=== PATIENT | female | born 1940 | race Caucasian/White ===

== ENCOUNTER 2016-11-17 13:38 | Inpatient (IN) | payer MEDICARE, BC ==
--- NOTE | ~2016-11-17 | HP ---
History And Physical [place] [id number] [facility] [place]. [address] NAME: ROSETTA CASH : 39 STATUS : ADM Rashida PAT#: [id number] AGE: 76 ADM/REG DATE : 11/17/16 MR#: [id number] REPORT SERV DATE: 11/18/16 DICTATED BY: CHUY MILLER DATE: 11/17/16 REPORT STATUS : Draft TRANSCRIBED BY: MODL DATE: 11/17/16 DATE OF ADMISSION: 11/17/2016 CHIEF COMPLAINT: Abdominal pain and diarrhea. HISTORY OF PRESENT ILLNESS: This is a 76-year-old female, who presents to the emergency room at [facility] with the above-mentioned complaint. History is obtained from the patient, her who is at bedside, and reviewing data available on the [employer] system. According to available data, Ms Cash has been having what they describe as acute diarrhea for about 10 days now. She says initially it started as black tarry and then became watery stools. She did not see any blood in the stools, but this diarrhea was accompanied by pain in her entire lower abdomen. She denied any fever or chills with this as well. She says it initially started after she had a cholecystectomy about six months ago and has been having diarrhea on and off ever since. Somehow, they had never thought of calling their dish maker, Dr. Ameya Perales. Anyway, after about 10 days now with diarrhea and nausea, she started feeling very weak, unable to do activities of daily living and decided to come to the emergency room to be evaluated. In the emergency room, initial workup including a CT scan did not reveal any acute pathology, but she was dehydrated and continued to have diarrhea, had leukocytosis and Hospitalist Service is asked to admit her for further evaluation and treatment. At the time of my evaluation, she denied any chest pain, palpitations, or orthopnea. She had no cough, hemoptysis, night sweats, or weight loss. She did not have any recent falls or loss of consciousness, although she did feel dizzy and weak. No history of fevers, chills, as mentioned above. She did have some nausea, but without any vomiting, diarrhea as mentioned above. She denied any hematemesis, hematochezia, hematuria or dysuria. No other history of recent travel or exposures other than those mentioned above. PAST MEDICAL HISTORY: Significant for essential hypertension, history of depression and anxiety, diabetes mellitus type 2, history of CVA, dementia, hypercholesterolemia, coronary artery disease with CABG, and the left nephrectomy. SOCIAL HISTORY: She does not smoke, drink, or use recreational drugs. FAMILY HISTORY: Noncontributory. MEDICATIONS: At home were reviewed by me in the chart today and reordered by me. REVIEW OF SYSTEMS: As in history of present illness. All other systems were reviewed in detail and are quite unremarkable. PHYSICAL EXAMINATION: History And Physical [address] [place]. [address] NAME: ROSETTA CASH : 39 STATUS : ADM Rashida PAT#: [id number] AGE: 76 ADM/REG DATE : 11/17/16 MR#: [id number] REPORT SERV DATE: 11/18/16 DICTATED BY: CHUY MILLER DATE: 11/17/16 REPORT STATUS : Draft TRANSCRIBED BY: JENNIFER DATE: 11/17/16 GENERAL: This is a pleasant 76-year-old, not in any acute distress. HEENT: Her head is atraumatic, normocephalic. She is alert, awake, and oriented to time, place, and person. Pupils are equal, reacting to light, and accommodating. External ocular muscles are intact. Membranes are moist and pink. Sclerae are nonicteric. NECK: Supple with no jugular venous distention, lymphadenopathy, or thyromegaly. LUNGS: Clear to auscultation with no wheezes, rubs, or crackles. HEART: Sounds were regular with no murmurs, rubs, or gallops. ABDOMEN: Soft, nontender. Bowel sounds are present. There was some tenderness to palpation in the lower quadrants, otherwise without any guarding or rigidity. There was no rebound tenderness. EXTREMITIES: Showed no cyanosis, clubbing, or edema. NEUROLOGIC: Grossly intact. No focal sensory or motor deficits. Higher functions appeared intact. Able to move all four extremities. VITAL SIGNS: She was afebrile today. Pulse was 86, respirations 18 a minute, blood pressure was 140/93, oxygen saturations were 95% on room air. LABORATORY DATA: Reviewed on the [employer] system showed a sodium of 139, potassium 3.9, chloride 102, and CO2 of 23, BUN was 20 with a creatinine of 1.62 which is up from her baseline of 1.1 to 1.2. Her blood glucose was 135. Lipase today was 109 and a CBC showed an elevated white blood cell count of 21y189; normal hemoglobin, hematocrit, and platelet count. Urinalysis was grossly unremarkable. Films of the chest x-ray and CT scan of the abdomen were reviewed by me on the PACS today and interpreted by me. Official radiology report for the CT of the abdomen was also reviewed. This did not show any bowel obstruction or bowel wall inflammation no mass lesions or adenopathy. She has had a left nephrectomy. There is also a stable 2.5 cm infrarenal abdominal aortic aneurysm. Films of the chest x-ray was interpreted by me. Per my interpretation, there is normal bony architecture with sternotomy, no cardiomegaly. Lung feliciano were clear. No infiltrates or effusions seen. A 12-lead EKG done in the emergency room was reviewed and interpreted by me. There is normal sinus rhythm at a rate of [address] elevations. IMPRESSION: 1. Abdominal pain. 2. Diarrhea. 3. Dehydration. 4. Leukocytosis. 5. Generalized weakness. 6. Essential hypertension. 7. Diabetes mellitus type 2. 8. Hypercholesterolemia. 9. Coronary artery disease with coronary artery bypass graft. 10.Left nephrectomy. 11.Dementia. History And Physical [address] [address] NAME: ROSETTA CASH : 39 STATUS : ADM Rashida PAT#: [id number] AGE: 76 ADM/REG DATE : 11/17/16 MR#: [id number] REPORT SERV DATE: 11/18/16 DICTATED BY: CHUY MILLER DATE: 11/17/16 REPORT STATUS : Draft TRANSCRIBED BY: MODL DATE: 11/17/16 12.History of cerebrovascular accident. 13.Depression and anxiety. PLAN: We will admit Ms Cash to the Hospitalist Service with telemetry for a 24-hour observation. We will start her on IV fluids for volume replacement. Check her chemistry, electrolytes in the morning, and replace as needed. Her stool for C. diff has been collected and results are pending. Meanwhile, we will go ahead and obtain blood, urine, and sputum cultures, but hold off on antibiotics until we know the results of the C. diff colitis. Meanwhile, we will start her on intravenous Zofran and Phenergan for her symptoms. Consult Gastroenterology Service with Dr. Perales to see her in the morning. She may need an endoscopy, and we will keep her n.p.o. for now. We will also start on blood sugar control with NovoLog given subcutaneously per sliding scale and check her A1c. We will also get Social Work to evaluate her in the morning to see if we can provide some rehabilitative services arranged for her. Continue all other medications and treatments at this time and place her on unfractionated heparin for DVT prophylaxis while she is here. I have discussed the above plans with the patient and the family. Questions were answered and they are agreeable to the above recommendations. Hospitalist Service will be following her during her stay here. /JENNIFER Chuy Miller M.D. / [id number] CC: Jared Snider M.D.
--- NOTE | ~2016-11-17 | DS ---
Discharge Summary [address] [place]. [address] NAME: ROSETTA CASH : 39 STATUS : DIS IN PAT#: [id number] AGE: 76 ADM/REG DATE : 11/18/16 MR#: [id number] REPORT SERV DATE: 11/24/16 DICTATED BY: JARED SNIDER DATE: 11/23/16 REPORT STATUS : Draft TRANSCRIBED BY: MODMichela DATE: 11/23/16 ADMISSION DATE: 11/18/2016 DISCHARGE DATE: 11/23/2016 DISCHARGE DIAGNOSES: 1. Acute Clostridium difficile colitis. 2. Dehydration. 3. Generalized weakness. 4. Essential hypertension. 5. Type 2 diabetes mellitus. 6. Hyperlipidemia. 7. Coronary artery disease with coronary artery bypass grafting. 8. Left nephrectomy. 9. Mild dementia. 10.History of cerebrovascular accident. 11.Depression and anxiety. 12.Paroxysmal atrial fibrillation. CONSULTANTS DURING THIS HOSPITALIZATION: Deniz, Gastroenterology. INVASIVE PROCEDURES DONE DURING THIS HOSPITALIZATION: None. BRIEF HISTORY OF PRESENT ILLNESS: The patient is a 76-year-old female, apparently recently underwent treatment with antibiotics and then suffered significant diarrhea for 10 days, so she was admitted. For detailed history and physical exam, please see note dictated by Dr. Chuy Denise on 11/17/2016. HOSPITAL COURSE: After being admitted to the hospital, this patient was followed by Dr. Mary Nash and her stool studies came back positive for C. difficile, and she was deemed to have C. difficile colitis. We continued Flagyl and oral vancomycin was initiated. She was given aggressive hydration because of the dehydration issues. She had multiple bouts of diarrhea during the daytime as well and this was managed through IV fluids. The patient's diet was slowly advanced as her symptoms seemed to improve. Gastroenterology signed off her care and recommended a total of 14 days of vancomycin. Obtaining vancomycin was done through over Case Management Department as it would be cost-effective for patient to buy the medication outright. Physical Therapy saw the patient in consultation as well, recommended patient ambulate with family members' assistance. We continued to monitor her, and her diarrhea now has significantly improved. She is tolerating a diet, and she feels well enough that she could be discharged in the home setting. DISCHARGE DISPOSITION: Home. DISCHARGE ACTIVITY: As tolerated. DISCHARGE DIET: GI soft. Discharge Summary [address] [place]. [address] NAME: ROSETTA CASH : 39 STATUS : DIS IN PAT#: [id number] AGE: 76 ADM/REG DATE : 11/18/16 MR#: [id number] REPORT SERV DATE: 11/24/16 DICTATED BY: JARED SNIDER DATE: 11/23/16 REPORT STATUS : Draft TRANSCRIBED BY: JENNIEFR DATE: 11/23/16 DISCHARGE MEDICATIONS: Vancomycin 125 mg p.o. four times daily for 9 more days to finish a 14-day course, aspirin 81 mg once daily, Cartia XT 120 mg once daily, Aricept 5 mg once daily, Lexapro 10 mg every morning, Neurontin 300 mg once every morning and 600 mg in the evening, multivitamins one tablet daily, potassium 20 mEq once every morning, Pravachol 10 mg once every evening, Altace 5 mg twice daily, and Klonopin 0.5 mg p.o. at bedtime. DISCHARGE FOLLOWUP: 1. With Dr. Ameya Perales in two to three weeks. 2. With primary care physician in one week. More than 30 minutes spent planning this patient's discharge, reconciling medications, writing prescriptions, discussing hospital care and followup with the patient and the at the bedside and documenting this discharge. ZARINA/JENNIFER Jared Snider M.D. / [id number] CC: Kindra Guardado M.D.
--- NOTE | ~2016-11-17 | CN ---
Consultation Report [facility] [address] [place]. [address] NAME: ROSETTA CASH : 39 STATUS : ADM IN PAT#: [id number] AGE: 76 ADM/REG DATE : 11/18/16 MR#: [id number] REPORT SERV DATE: 11/18/16 DICTATED BY: KATHY GARCIA III DATE: 11/18/16 REPORT STATUS : Draft TRANSCRIBED BY: JENNIFER DATE: 11/18/16 CONSULTATION DATE OF CONSULTATION: HISTORY OF PRESENT ILLNESS: The patient is a 76-year-old white female with a history of high blood pressure, depression, anxiety, type 2 diabetes, stroke, dementia, hypercholesterolemia, coronary artery disease, who presents for evaluation of diarrhea. The patient has a long history of intermittent loose stools. However prior to this bout of loose stools, her bowels were moving on a regular basis without diarrhea. A few weeks ago, she started noticing some dark stools. It almost looked tarry, but it was thin, not much smell at all, then turned into green diarrhea. She had been treated for H. pylori with antibiotics a few weeks ago. Dr. Perales had done a colonoscopy three years ago for followup of polyps and chronic diarrhea and she was diagnosed with an irritable bowel. In addition to loose stools, she felt weak and nauseated, week almost to the point of dizziness. On evaluation, she had some acute renal failure with some electrolyte disturbances. PAST SURGICAL HISTORY: CABG, left nephrectomy. PAST MEDICAL HISTORY: As noted. MEDICATIONS: At home, aspirin, clonazepam, Cartia, Aricept, Lexapro, Neurontin, Pravachol, Altace, Klor-Con, multivitamin, Neurontin. ALLERGIES: PENICILLIN, CEPHALOSPORIN, TETRACYCLINE, ERYTHROMYCIN, CIPROFLOXACIN, LORACARBEF, FOSINOPRIL, VIOXX, AND DOXYCYCLINE. PHYSICAL EXAMINATION: GENERAL: Very pleasant, sweet white female. VITAL SIGNS: Stable, afebrile. HEENT: Atraumatic, normocephalic. Sclerae anicteric. Oropharynx is clean. CHEST: Clear to auscultation. CV: S1, S2. ABDOMEN: Nontender, nondistended. Good bowel sounds. EXTREMITIES: No edema. ASSESSMENT AND PLAN: 1. C diff colitis. The patient is an elderly white female with multiple medical problems, who presents with diarrhea and found to be C diff positive with dehydration, electrolyte disturbance. I suspect that the C diff is related to her antibiotic exposure. As such, we will do the following:. a. Agree with current therapy and this can be continued for two weeks. b. IV fluids and cut back as she becomes rehydrated. Consultation Report [facility] [address] [place]. [address] NAME: ROSETTA CASH : 39 STATUS : ADM IN PAT#: [id number] AGE: 76 ADM/REG DATE : 11/18/16 MR#: [id number] REPORT SERV DATE: 11/18/16 DICTATED BY: KATHY GARCIA III DATE: 11/18/16 REPORT STATUS : Draft TRANSCRIBED BY: JENNIFER DATE: 11/18/16 c. Correct electrolyte abnormalities. d. No need for colonoscopy, but she is due a colonoscopy later this year, and at that time, we will do an EGD to document H pylori eradication. ALVARO/JENNIFER Kathy Garcia III, M.D. / [id number] CC: Emile Nash M.D.
[2016-11-17 10:47] LABS: BASOPHILS 0.1 %; BASOPHILS ABSOLUTE 0.01 10/3/uL (0.0-0.16); EOSINOPHILS 0.2 %; EOSINOPHILS ABSOLUTE 0.03 10/3/uL (0.0-0.53); HEMATOCRIT 42.9 % (36.0-48.0); HEMOGLOBIN 14.9 g/dL (12.0-16.0); IMMATURE GRANULOCYTES 0.7 %; IMMATURE GRANULOCYTES ABSOLUTE 0.11 10/3/uL (0.0-0.11); LYMPHOCYTES 7.6 %; LYMPHOCYTES ABSOLUTE 1.23 10/3/uL (0.67-4.30); MEAN CORPUS HGB CONC 34.7 g/dL (32.0-36.0); MEAN CORPUSCULAR HEMOGLOB 31.8 pg (26.0-34.0); MEAN PLATELET VOLUME 10.4 fL (9.2-13.0); MONOCYTES 10.6 %; MONOCYTES ABSOLUTE 1.71 10/3/uL (0.21-1.20); NEUTROPHILS 80.8 %; NEUTROPHILS ABSOLUTE 13.04 10/3/uL (2.02-8.40); PLATELET COUNT 234 10/3/uL (150-400); RED CELL COUNT 4.68 10/6/uL (4.0-5.6)
[2016-11-17 10:50] LABS: ER CBC TAT 0 Hrs 09 Mins; MANUAL DIFF NO %; MEAN CORPUSCULAR VOLUME 91.7 fL (80-100); WHITE BLOOD CELLS 16.1 10/3/uL (4.5-10.5)
[2016-11-17 11:01] LABS: ALBUMIN 3.8 G/DL (3.5-5.0); ALKALINE PHOSPHATASE 81 U/L (45-117); BUN (BLOOD UREA NITROGEN) 20 MG/DL (6-23); CALCIUM, SERUM 9.2 MG/DL (8.5-10.4); CHLORIDE, SERUM 102 MMOL/L (96-112); CO2 (CARBON DIOXIDE) 23 MMOL/L (24-34); CREATININE 1.62 MG/DL (0.55-1.02); GFR AFRICAN AMERICAN 35 ML/MIN (>=60); GFR NON AFRICAN AMERICAN 30 ML/MIN (>=60); GLOBULIN 3.9 G/DL (2.5-4.1); GLUCOSE, SERUM 135 MG/DL (60-99); POTASSIUM, SERUM 3.9 MMOL/L (3.5-5.3); SGOT(AST) 10 U/L (5-40); SGPT(ALT) 20 U/L (5-65); SODIUM, SERUM 139 MMOL/L (135-148); TOTAL BILIRUBIN 1.9 MG/DL (0-1.2); TOTAL PROTEIN 7.7 G/DL (6.0-8.5)
[~2016-11-17 13:38] MED LIST: AGGRENOX PO; ALAVERT10 MG PO; ALIGN4 MG PO; ALTACE10 MG PO; AMB10 PO; ARICEPT10 PO; ASAB PO; ATEN25 PO; ATEN50 PO; BYSTOLIC5 MG PO; CALTRA600D PO; CALTRAT600 PO; CARDCD120 PO; CARTIA XT240 MG/24 PO; CELEXA10 PO; CELEXA20 PO; CENTRUM TAB1 TAB PO; COMBIVENT INHAL15 GM INH; COREG3 PO; COREG6 PO; COZ50 PO; COZAAR100 MG PO; CRESTOR10 PO; DETROLLA2 PO; ENDOCET1 TA1 PO; EVISTA60 PO; FISH-EPA1000 MG PO; FLEX PO; JANUVIA100 MG PO; KLOR-CON 1010 MEQ PO; KLOR-CON M1010 MEQ PO; LEXAPRO10 PO; LORT7 PO; MULTIPLE VIT PO; MULTIVIT/MIN; NASACORTAQ NAS; NEUR300 PO; NEUR600 PO; ONGLYZA5 MG PO; PROBIOTIC; REOCYTE PLUS PO; TENORETIC1 TAB PO; ULTRAM50 PO; VENTOLIN HFA INH; VITAMIN D400 UNI1 PO; ZOCOR20 PO
[2016-11-17 17:44] LABS: ASCORBIC ACID (UR NOT ORDER) NEG (NEG); BILIRUBIN, URINE NEGATIVE (NEG); ER URINALYSIS TAT 0 Hrs 08 Mins; KETONE, URINE NEGATIVE (NEG); LEUKOCYTE ESTERASE(NOT OR TRACE (NEG); NITRITE (URINE) NEG (NEG); WBC (NOT ORDERED) (RFLEX) 4 (0-5)
[2016-11-17] MEDS ORDERED: ALTA5 PO (19:35)
[2016-11-17] MEDS ORDERED: KLOR-CON M2020 MEQ PO (19:35)
[2016-11-17] MEDS ORDERED: ASAB PO (19:35)
[2016-11-17] MEDS ORDERED: NEUR600 PO (19:36)
[2016-11-17] MEDS ORDERED: NEUR300 PO (19:36)
[2016-11-17] MEDS ORDERED: Multivit/Min Tab (19:36)
[2016-11-17] MEDS ORDERED: CARTIA XT120 MG/24 PO (19:36)
[2016-11-17] MEDS ORDERED: ARICEPT5 PO (19:37)
[2016-11-17] MEDS ORDERED: LEXAPRO10 PO (19:37)
[2016-11-17] MEDS ORDERED: PRAV10 PO (19:37)
[2016-11-17] MEDS ORDERED: KLONO5 PO (19:38)
[2016-11-18 05:13] LABS: ASCORBIC ACID (UR NOT ORDER) 40 (NEG); BILIRUBIN, URINE NEGATIVE (NEG); KETONE, URINE TRACE MG/DL (NEG); LEUKOCYTE ESTERASE(NOT OR NEG (NEG); WBC (NOT ORDERED) (RFLEX) 3 (0-5)
[2016-11-18 08:13] LABS: BASOPHILS 0.1 %; BASOPHILS ABSOLUTE 0.01 10/3/uL (0.0-0.16); EOSINOPHILS 3.3 %; HEMOGLOBIN 13.5 g/dL (12.0-16.0); IMMATURE GRANULOCYTES 0.4 %; IMMATURE GRANULOCYTES ABSOLUTE 0.04 10/3/uL (0.0-0.11); LYMPHOCYTES 13.3 %; MEAN CORPUS HGB CONC 33.8 g/dL (32.0-36.0); MEAN CORPUSCULAR HEMOGLOB 31.3 pg (26.0-34.0); MEAN CORPUSCULAR VOLUME 92.8 fL (80-100); MEAN PLATELET VOLUME 10.6 fL (9.2-13.0); MONOCYTES 10.4 %; MONOCYTES ABSOLUTE 0.94 10/3/uL (0.21-1.20); NEUTROPHILS 72.5 %; NEUTROPHILS ABSOLUTE 6.52 10/3/uL (2.02-8.40); PLATELET COUNT 201 10/3/uL (150-400); RBC DISTRIBUTION WIDTH 14.5 % (12.0-16.0); RED CELL COUNT 4.31 10/6/uL (4.0-5.6)
[2016-11-18 08:19] LABS: MANUAL DIFF NO %
[2016-11-18 08:32] LABS: BUN (BLOOD UREA NITROGEN) 21 MG/DL (6-23); CALCIUM, SERUM 8.3 MG/DL (8.5-10.4); CHLORIDE, SERUM 109 MMOL/L (96-112); CO2 (CARBON DIOXIDE) 20 MMOL/L (24-34); GFR AFRICAN AMERICAN 46 ML/MIN (>=60); GFR NON AFRICAN AMERICAN 40 ML/MIN (>=60); PHOSPHORUS, SERUM 2.7 MG/DL (2.5-4.5); POTASSIUM, SERUM 3.2 MMOL/L (3.5-5.3); SODIUM, SERUM 143 MMOL/L (135-148)
[2016-11-18 08:38] LABS: GLUCOSE, SERUM 105 MG/DL (60-99)
[2016-11-18 08:56] LABS: PLATELET ESTIMATE ADQ (ADEQUATE); RBC MORPHOLOGY NORM (NORMAL)
[2016-11-19 05:21] LABS: BASOPHILS 0.2 %; BASOPHILS ABSOLUTE 0.02 10/3/uL (0.0-0.16); EOSINOPHILS 2.7 %; EOSINOPHILS ABSOLUTE 0.24 10/3/uL (0.0-0.53); HEMATOCRIT 37.4 % (36.0-48.0); HEMOGLOBIN 12.8 g/dL (12.0-16.0); IMMATURE GRANULOCYTES 0.4 %; IMMATURE GRANULOCYTES ABSOLUTE 0.04 10/3/uL (0.0-0.11); LYMPHOCYTES ABSOLUTE 1.44 10/3/uL (0.67-4.30); MANUAL DIFF NO %; MEAN CORPUS HGB CONC 34.2 g/dL (32.0-36.0); MEAN CORPUSCULAR HEMOGLOB 31.5 pg (26.0-34.0); MEAN CORPUSCULAR VOLUME 92.1 fL (80-100); MEAN PLATELET VOLUME 10.6 fL (9.2-13.0); MONOCYTES 9.5 %; MONOCYTES ABSOLUTE 0.85 10/3/uL (0.21-1.20); NEUTROPHILS 71.2 %; NEUTROPHILS ABSOLUTE 6.39 10/3/uL (2.02-8.40); PLATELET COUNT 238 10/3/uL (150-400); RBC DISTRIBUTION WIDTH 14.2 % (12.0-16.0); RED CELL COUNT 4.06 10/6/uL (4.0-5.6)
[2016-11-19 05:40] LABS: CALCIUM, SERUM 8.1 MG/DL (8.5-10.4); CHLORIDE, SERUM 113 MMOL/L (96-112); CO2 (CARBON DIOXIDE) 20 MMOL/L (24-34); GFR AFRICAN AMERICAN 56 ML/MIN (>=60); GFR NON AFRICAN AMERICAN 48 ML/MIN (>=60); GLUCOSE, SERUM 107 MG/DL (60-99); POTASSIUM, SERUM 3.7 MMOL/L (3.5-5.3); SODIUM, SERUM 143 MMOL/L (135-148)
[2016-11-19 05:43] LABS: BUN (BLOOD UREA NITROGEN) 16 MG/DL (6-23)
[2016-11-20 04:59] LABS: HEMATOCRIT 34.5 % (36.0-48.0); HEMOGLOBIN 11.7 g/dL (12.0-16.0); MEAN CORPUS HGB CONC 33.9 g/dL (32.0-36.0); MEAN CORPUSCULAR HEMOGLOB 31.2 pg (26.0-34.0); MEAN PLATELET VOLUME 10.4 fL (9.2-13.0); PLATELET COUNT 223 10/3/uL (150-400); RBC DISTRIBUTION WIDTH 14.7 % (12.0-16.0); RED CELL COUNT 3.75 10/6/uL (4.0-5.6); WHITE BLOOD CELLS 7.2 10/3/uL (4.5-10.5)
[2016-11-20 05:13] LABS: MANUAL DIFF YES %
[2016-11-20 05:15] LABS: BUN (BLOOD UREA NITROGEN) 12 MG/DL (6-23); CALCIUM, SERUM 8.3 MG/DL (8.5-10.4); CHLORIDE, SERUM 111 MMOL/L (96-112); CO2 (CARBON DIOXIDE) 23 MMOL/L (24-34); GFR AFRICAN AMERICAN 56 ML/MIN (>=60); GFR NON AFRICAN AMERICAN 48 ML/MIN (>=60); GLUCOSE, SERUM 77 MG/DL (60-99); POTASSIUM, SERUM 3.8 MMOL/L (3.5-5.3); SODIUM, SERUM 144 MMOL/L (135-148)
[2016-11-20 07:30] LABS: BAND NEUTROPHILS 1 %; EOSINOPHILS 3 %; EOSINOPHILS ABSOLUTE (CALC) 0.22 10/3/uL (0.0-0.53); LYMPHOCYTES 29 %; LYMPHOCYTES ABSOLUTE (CALC) 2.09 10/3/uL (0.67-4.30); MONOCYTES 9 %; MONOCYTES ABSOLUTE (CALC) 0.65 10/3/uL (0.21-1.20); NEUTROPHILS ABSOLUTE (CALC) 4.25 10/3/uL (2.02-8.40); SEGMENTED NEUTROPHIL (0) 58 %; TOTAL NUCLEATED CELLS 100
[2016-11-20 07:31] LABS: PLATELET ESTIMATE ADQ (ADEQUATE); RBC MORPHOLOGY NORM (NORMAL)
[2016-11-22 06:41] LABS: ALBUMIN 2.5 G/DL (3.5-5.0); BUN (BLOOD UREA NITROGEN) 9 MG/DL (6-23); CALCIUM, SERUM 8.5 MG/DL (8.5-10.4); CHLORIDE, SERUM 106 MMOL/L (96-112); CO2 (CARBON DIOXIDE) 24 MMOL/L (24-34); CREATININE 1.07 MG/DL (0.55-1.02); GFR AFRICAN AMERICAN 58 ML/MIN (>=60); GFR NON AFRICAN AMERICAN 50 ML/MIN (>=60); GLUCOSE, SERUM 93 MG/DL (60-99); PHOSPHORUS, SERUM 3.3 MG/DL (2.5-4.5); POTASSIUM, SERUM 4.2 MMOL/L (3.5-5.3); SODIUM, SERUM 142 MMOL/L (135-148)
[2016-11-22 09:57] LABS: BUN (BLOOD UREA NITROGEN) 8 MG/DL (6-23); CALCIUM, SERUM 8.7 MG/DL (8.5-10.4); CHLORIDE, SERUM 108 MMOL/L (96-112); CO2 (CARBON DIOXIDE) 26 MMOL/L (24-34); CREATININE 1.12 MG/DL (0.55-1.02); GFR AFRICAN AMERICAN 55 ML/MIN (>=60); GFR NON AFRICAN AMERICAN 47 ML/MIN (>=60); GLUCOSE, SERUM 120 MG/DL (60-99); SODIUM, SERUM 143 MMOL/L (135-148)
[2016-11-23] MEDS ORDERED: VANCOCIN HCL125 MG PO (11:34)
[2017-02-04] MEDS ORDERED: TAZTIA X4 PO (10:42)
[2017-02-04] MEDS ORDERED: ANALGESIC TOP (10:42)
[2017-02-04] MEDS ORDERED: T PO (10:42)
[2017-02-04] MEDS ORDERED: ALTA5 PO (10:43)
[2017-02-04] MEDS ORDERED: [UNRECOGNIZED DRUG - REMARK] PO (10:43)
[2017-02-04] MEDS ORDERED: NEUR300 PO ×2 (10:44)
[2017-02-04] MEDS ORDERED: LEXAPRO10 PO (10:44)
[2017-02-04] MEDS ORDERED: ARICEPT10 PO (10:44)
[2017-02-04] MEDS ORDERED: CAT1 PO (10:45)
[2017-02-04] MEDS ORDERED: KLOR-CON M2020 MEQ PO (10:45)
[2017-02-04] MEDS ORDERED: PRAV10 PO (10:45)
[2017-02-11] MEDS ORDERED: FLORASTOR250 MG PO (10:41)
[2017-02-11] MEDS ORDERED: VANCOCIN HCL125 MG PO (10:42)
[2017-02-11] MEDS ORDERED: BANATROL PO (10:43)
[2017-02-15] MEDS ORDERED: MULTI-VIT HP PO (09:36)
[2017-02-15] MEDS ORDERED: PRAV10 PO (15:58)
[2017-02-15] MEDS ORDERED: ACIDOPHILU2 PO (16:00)
[2017-02-15] MEDS ORDERED: VANCOMYCIN LIQUID PO (16:02)
[2017-02-15] MEDS ORDERED: KDUR20 PO (16:06)
== END 2016-11-23 14:45 | disposition home or self-care (01) | DRG 372 ==
LOC: ER 13:38 → 4SO 21:08
PROVIDERS: Emergency Medicine; Hospitalist; Internal Medicine; Internal Medicine Pulmonary Disease
DX: A04.7 Enterocolitis due to Clostridium difficile (principal); N17.9 Acute kidney failure, unspecified; E86.0 Dehydration; I48.0 Paroxysmal atrial fibrillation; E11.9 Type 2 diabetes mellitus without complications; F03.90 Unspecified dementia, unspecified severity, without behavioral disturbance, psychotic disturbance, mood disturbance, and anxiety; I10 Essential (primary) hypertension; F32.9 Major depressive disorder, single episode, unspecified; F41.9 Anxiety disorder, unspecified; Z86.73 Personal history of transient ischemic attack (TIA), and cerebral infarction without residual deficits; E78.00 Pure hypercholesterolemia, unspecified; I25.10 Atherosclerotic heart disease of native coronary artery without angina pectoris; Z95.1 Presence of aortocoronary bypass graft; Z90.5 Acquired absence of kidney; R53.1 Weakness; K58.0 Irritable bowel syndrome with diarrhea; Z86.010 Personal history of colon polyps; Z79.82 Long term (current) use of aspirin; Z79.891 Long term (current) use of opiate analgesic; Z88.0 Allergy status to penicillin; Z88.1 Allergy status to other antibiotic agents
CPT/HCPCS: 36415; 71010; 74176; 80048; 80053; 80069; 81001; 82962; 83690; 83735; 84100; 85025; 86850; 86900; 86901; 86920; 87040; 87328; 87329; 87493; 87493-59; 89055; 93005; 96374; 96375; 97161-GP; 99285; A9270-GY; G8978-CH-GP; G8979-CH-GP; G8980-CH-GP; J0360; J1170; J1980; J2405; J2550; J2930

== ENCOUNTER 2016-12-03 16:15 | Inpatient (IN) | payer MEDICARE, BC ==
--- NOTE | ~2016-12-03 | HP ---
History And Physical [facility] [address] [facility] [place]. [address] NAME: ROSETTA CASH : 39 STATUS : ADM IN [facility]#: [id number] AGE: 76 ADM/REG DATE : 12/03/16 MR#: [id number] REPORT SERV DATE: 12/03/16 DICTATED BY: AMERICA JAMES DATE: 12/03/16 REPORT STATUS : Draft TRANSCRIBED BY: MODMichela DATE: 12/03/16 DATE OF ADMISSION: 12/03/2016 DATE OF ADMISSION: 12/06/2016 CHIEF COMPLAINT: Diarrhea and abdominal pain. HISTORY OF PRESENT ILLNESS: This is a 76-year-old female with medical history of gastroesophageal reflux disease, H. pylori infection status post triple therapy x2, recent C. difficile colitis who presented to the emergency room department of [facility] here at [place] with complaints of abdominal pain and diarrhea. Of note, the patient was recently discharged from the hospital about 10 days ago. She was treated for acute Clostridium difficile colitis. The patient was discharged home on p.o. vancomycin. The patient reported that she completed the course of treatment with p.o. vancomycin; however, she continues to feel some abdominal cramps and abdominal pain. On the day of presentation, she developed multiple episodes of loose stools. She reports that she had about 3 episodes of loose stools and developed some nausea. She denies any vomiting. She also reported associated diffuse abdominal pain most severe in the epigastric region. She denies any hematemesis. She denies any hematochezia. The patient denies any fever, no chills. She denies any history of contact with any patient with recent diagnosis of acute diarrhea. The patient was brought to the emergency room. On arrival to the emergency room, the patient was noted to continue to have persistent nausea. She was having generalized weakness with fatigue and has had an episode of loose stool. The Hospitalist Service was contacted to admit the patient for further workup, for the etiology of acute diarrhea, and further management of generalized fatigue. PAST MEDICAL HISTORY: 1. Acute Clostridium difficile colitis. 2. Essential hypertension. 3. History of coronary artery disease with remote history of coronary artery bypass grafting. 4. History of left nephrectomy. 5. History of cerebrovascular accident. 6. Depression. 7. Anxiety disorder. 8. Hyperlipidemia. 9. Diabetes mellitus type 2. PAST SURGICAL HISTORY: 1. History of coronary artery bypass surgery. 2. History of left nephrectomy. SOCIAL HISTORY: The patient denies smoking cigarettes, drinking alcohol, or recreational drug use. The patient has history of mild cognitive dysfunction. She lives with her daughter. History And Physical [address] [place]. [address] NAME: ROSETTA CASH : 39 STATUS : ADM IN [facility]#: [id number] AGE: 76 ADM/REG DATE : 12/03/16 MR#: [id number] REPORT SERV DATE: 12/03/16 DICTATED BY: AMERICA JAMES DATE: 12/03/16 REPORT STATUS : Draft TRANSCRIBED BY: JENNIFER DATE: 12/03/16 FAMILY HISTORY: Significant for history of stomach cancer and pancreatic cancer in the family. HOME MEDICATIONS: 1. Aspirin 81 mg p.o. daily. 2. Klonopin 0.5 mg p.o. at bedtime. 3. Cardizem CD 120 mg p.o. every morning. 4. Aricept 5 mg p.o. every morning. 5. Lisinopril 10 mg p.o. every evening. 6. Gabapentin 300 mg p.o. every morning. 7. Gabapentin 600 mg p.o. every evening. 8. Multivitamins one p.o. daily. 9. Potassium 20 mEq p.o. daily. 10.Pravastatin 5 mg p.o. b.i.d. 11.Ramipril 5 mg p.o. b.i.d. 12.Vancomycin 125 mg cap p.o. every 6 hours, completed therapy on 12/02/2016. ALLERGIES: THE PATIENT HAS AN EXTENSIVE LIST OF ALLERGIES. PLEASE MAKE REFERENCE WHICH INCLUDES: 1. DOXYCYCLINE. 2. PENICILLIN. 3. CEPHALOSPORIN. 4. TETRACYCLINE. 5. ERYTHROMYCIN BASE OINTMENT. 6. CIPROFLOXACIN. 7. FOSINOPRIL. 8. ROFECOXIB. REVIEW OF SYSTEMS: A 12-point review of system conducted essentially negative. Positive findings as per HPI. PHYSICAL EXAMINATION: VITAL SIGNS: Blood pressure 153/83 mmHg, temperature 98.4, pulse 67 beats per minute, and saturating 98% on room air. GENERAL: The patient is lying in bed, in acute distress due to abdominal pain. HEENT: Extraocular muscles intact. Pupils equal, round, and reactive. Oral mucosa dry. Anicteric, not pale. CHEST: Median sternotomy scar present, healed. Chest nontender, equally symmetrical. LUNGS: Clear to auscultation bilaterally. CARDIOVASCULAR: Regular rate and rhythm S1, S2. No murmurs, no rubs, no gallops. ABDOMEN: Bowel sounds hyperactive. Diffuse abdominal tenderness most severe in the epigastric region. No rebound. No guarding. No palpably enlarged organomegaly. EXTREMITIES: No pedal edema. Peripheral pulses palpable. NEUROLOGIC: Cranial nerves 2 through 12 intact. LABORATORY DATA: Hematology: WBC 7.9, hemoglobin 14.0, hematocrit 40.3, MCV 90.8, and History And Physical [address] [address] NAME: ROSETTA CASH : 39 STATUS : ADM IN [facility]#: [id number] AGE: 76 ADM/REG DATE : 12/03/16 MR#: [id number] REPORT SERV DATE: 12/03/16 DICTATED BY: AMERICA JAMES DATE: 12/03/16 REPORT STATUS : Draft TRANSCRIBED BY: MODMichela DATE: 12/03/16 platelets 422. PT 13.1, INR 1.0. Chemistry: Sodium 142, potassium 3.7, chloride 106, bicarb 26, BUN 18, creatinine 1.24, GFR 42, magnesium 2.2, total protein 7.7, albumin 3.5, direct bilirubin is 0.1, indirect bilirubin is 0.9, total bilirubin is 0.9, alkaline phosphatase 77, ALT 16, AST 15, and lipase 391. Troponin less than 0.02. EKG pending. Chest x-ray pending. Abdominal CT ordered. SUMMARY: This is a 76-year-old female with medical history of recent acute C. difficile colitis, who completed p.o. vancomycin on 12/02/2016, who re-presented to the hospital with complaints of worsening diarrhea, nausea, and diffuse abdominal pain concerning for possible recurrent C. difficile colitis. ASSESSMENT AND PLAN: 1. Diarrhea concerning for C. difficile colitis. 2. Abdominal pain. 3. Type 2 diabetes mellitus. 4. Hyperlipidemia. 5. History of coronary artery disease with history of coronary bypass grafting. 6. Diarrhea. At this point, we will order C. diff test. We will also order studies. We will also order a CT abdomen and pelvis. I will recommend the patient on vancomycin 125 mg p.o. q.6 hours. We will start the patient on IV fluid for resuscitation. We will put the patient on contact isolation. We will recommend the patient's home medication as ordered. We will follow up with the results of CT and stool test in the morning. 7. This patient will be admitted under the Hospitalist Service. The patient will be admitted to [address] [place] [id number] Prabhakar. 8. DVT prophylaxis. Heparin subcu. CODE STATUS: Full code. DIET: Clear liquid diet. ADMISSION STATUS: Inpatient. ADMISSION DISPOSITION: [address] [place] [id number] with medical telemetry. IOO/MODL erica James MD / [id number] CC: Kindra Garcia FP-NP
--- NOTE | ~2016-12-03 | DS ---
Discharge Summary [place] [address] [facility] [place]. [address] NAME: ROSETTA CASH : 39 STATUS : ADM IN [facility]#: [id number] AGE: 76 ADM/REG DATE : 12/03/16 MR#: [id number] REPORT SERV DATE: 12/07/16 DICTATED BY: JARED SNIDER DATE: 12/07/16 REPORT STATUS : Draft TRANSCRIBED BY: MODMichela DATE: 12/07/16 ADMISSION DATE: 12/03/2016 DISCHARGE DATE: 12/07/2016 DISCHARGE DIAGNOSES: 1. Functional diarrhea, currently stable and resolved. No evidence of C. diff on repeat studies. 2. Hypertension. 3. Type 2 diabetes mellitus. 4. History of cerebrovascular accident. 5. Dementia. 6. Paroxysmal atrial fibrillation. 7. Depression. 8. History of coronary artery disease. 9. History of left nephrectomy. 10.Gastritis and duodenitis on imaging. CONSULTANTS DURING THIS HOSPITALIZATION: None. INVASIVE PROCEDURES DONE DURING THIS HOSPITALIZATION: None. BRIEF HISTORY OF PRESENT ILLNESS: The patient is a 76-year-old female who was recently discharged from my service after being treated for C. difficile in outpatient followup. After 10 days this patient is still continuing to have diarrhea. So, she reported back to the hospital and was admitted. For detailed history and physical exam, please see note dictated by Dr. America Cleaning on 12/03/2016. HOSPITAL COURSE: After being admitted to the hospital, this patient was given IV fluids and monitored. Her stool studies were rechecked, and they were negative and C. diff was negative as well. She was discontinued out of isolation. When I saw the patient, she was feeling fairly well. She was tolerating a diet, and her diarrhea had significantly improved. We did give her one dose of Questran and that seemed to have improved her diarrhea even further. At this time, she feels well enough that she could go home and recover in the home setting. I have discussed with her that if she gets any further diarrhea, she may use half a pack of Questran in the home setting. DISCHARGE DISPOSITION: Home. DISCHARGE ACTIVITY: As tolerated. DISCHARGE DIET: Low-sodium diet. DISCHARGE MEDICATIONS: Questran Light half pack with 4 ounces of water as needed for diarrhea; Protonix 40 mg p.o. b.i.d.; aspirin 81 mg once daily; Cartia XT 120 mg once daily; Aricept 5 mg once every morning; Lexapro 10 mg once every morning; gabapentin 300 mg once every morning and 600 mg in the evening; multivitamins one tablet daily; Pravachol 10 mg Discharge Summary [place] [address] [facility] [place]. [address] NAME: ROSETTA CASH : 39 STATUS : ADM IN [facility]#: [id number] AGE: 76 ADM/REG DATE : 12/03/16 MR#: [id number] REPORT SERV DATE: 12/07/16 DICTATED BY: JARED SNIDER DATE: 12/07/16 REPORT STATUS : Draft TRANSCRIBED BY: JENNIFER DATE: 12/07/16 every morning; ramipril 5 mg twice daily; Klonopin 0.5 mg p.o. at bedtime; potassium 20 mEq once every morning. DISCHARGE FOLLOWUP: With Dr. Ameya Perales as previously scheduled. More than 30 minutes spent planning this patient's discharge, reconciling medications, writing prescriptions, discussing hospital care, follow up with the patient and the at the bedside, and documenting this discharge. ZARINA/JENNIFER Jared Snider M.D. / [id number] CC: Kindra Guardado FP-NP Sumeet Bhushan, M.D.
[~2016-12-03 16:15] MED LIST changes: +ALTA5 PO; +ARICEPT5 PO; +CARTIA XT120 MG/24 PO; +KLONO5 PO; +KLOR-CON M2020 MEQ PO; +Multivit/Min Tab; +PRAV10 PO; +VANCOCIN HCL125 MG PO
[2016-12-03 17:08] LABS: BASOPHILS 0.1 %; BASOPHILS ABSOLUTE 0.01 10/3/uL (0.0-0.16); EOSINOPHILS 2.1 %; EOSINOPHILS ABSOLUTE 0.17 10/3/uL (0.0-0.53); ER CBC TAT 0 Hrs 05 Mins; HEMATOCRIT 40.3 % (36.0-48.0); IMMATURE GRANULOCYTES 0.1 %; IMMATURE GRANULOCYTES ABSOLUTE 0.01 10/3/uL (0.0-0.11); LYMPHOCYTES 20.4 %; LYMPHOCYTES ABSOLUTE 1.61 10/3/uL (0.67-4.30); MANUAL DIFF NO %; MEAN CORPUS HGB CONC 34.7 g/dL (32.0-36.0); MEAN CORPUSCULAR HEMOGLOB 31.5 pg (26.0-34.0); MEAN CORPUSCULAR VOLUME 90.8 fL (80-100); MEAN PLATELET VOLUME 10.1 fL (9.2-13.0); MONOCYTES 10.4 %; MONOCYTES ABSOLUTE 0.82 10/3/uL (0.21-1.20); NEUTROPHILS 66.9 %; NEUTROPHILS ABSOLUTE 5.29 10/3/uL (2.02-8.40); PLATELET COUNT 422 10/3/uL (150-400); RBC DISTRIBUTION WIDTH 14.1 % (12.0-16.0); RED CELL COUNT 4.44 10/6/uL (4.0-5.6); WHITE BLOOD CELLS 7.9 10/3/uL (4.5-10.5)
[2016-12-03 17:18] LABS: PARTIAL THROMBO TIME 26.3 SEC (22.5-37.2); PROTIME (NOT ORD) 13.1 SEC (12.0-14.5)
[2016-12-03 17:34] LABS: ALKALINE PHOSPHATASE 77 U/L (45-117); CALCIUM, SERUM 9.5 MG/DL (8.5-10.4); CHLORIDE, SERUM 106 MMOL/L (96-112); CO2 (CARBON DIOXIDE) 26 MMOL/L (24-34); CREATININE 1.24 MG/DL (0.55-1.02); DIRECT BILIRUBIN 0.1 MG/DL (0.0-0.4); GFR AFRICAN AMERICAN 49 ML/MIN (>=60); GFR NON AFRICAN AMERICAN 42 ML/MIN (>=60); GLUCOSE, SERUM 98 MG/DL (60-99); POTASSIUM, SERUM 3.7 MMOL/L (3.5-5.3); SGOT(AST) 15 U/L (5-40); SGPT(ALT) 16 U/L (5-65); SODIUM, SERUM 142 MMOL/L (135-148); TOTAL PROTEIN 7.7 G/DL (6.0-8.5); TROPONIN I <0.02 NG/ML (<0.05)
[2016-12-03 17:35] LABS: ALBUMIN 3.5 G/DL (3.5-5.0); BUN (BLOOD UREA NITROGEN) 18 MG/DL (6-23); CHEST PAIN PROFILE TAT 0 Hrs 31 Mins; INDIRECT BILIRUBIN(NOT ORDER) 0.8 MG/DL (0.1-0.9); TOTAL BILIRUBIN 0.9 MG/DL (0-1.2)
[2016-12-03] MEDS ORDERED: ASAB PO (18:10)
[2016-12-03] MEDS ORDERED: KLONO5 PO (18:10)
[2016-12-03] MEDS ORDERED: CARTIA XT120 MG/24 PO (18:10)
[2016-12-03] MEDS ORDERED: ARICEPT5 PO (18:10)
[2016-12-03] MEDS ORDERED: LEXAPRO10 PO (18:11)
[2016-12-03] MEDS ORDERED: NEUR300 PO (18:11)
[2016-12-03] MEDS ORDERED: NEUR600 PO (18:11)
[2016-12-03] MEDS ORDERED: MULTIVIT/MIN PO (18:12)
[2016-12-03] MEDS ORDERED: KDUR20 PO (18:13)
[2016-12-03] MEDS ORDERED: PRAV10 PO (18:13)
[2016-12-03] MEDS ORDERED: ALTA5 PO (18:14)
[2016-12-03] MEDS ORDERED: VANCOCIN HCL125 MG PO (18:15)
[2016-12-03 20:13] LABS: ASCORBIC ACID (UR NOT ORDER) NEG (NEG); BILIRUBIN, URINE NEGATIVE (NEG); ER URINALYSIS TAT 0 Hrs 09 Mins; KETONE, URINE TRACE MG/DL (NEG); LEUKOCYTE ESTERASE(NOT OR NEG (NEG); NITRITE (URINE) NEG (NEG); WBC (NOT ORDERED) (RFLEX) 1 (0-5)
[2016-12-04 06:34] LABS: BASOPHILS 0.3 %; BASOPHILS ABSOLUTE 0.01 10/3/uL (0.0-0.16); EOSINOPHILS ABSOLUTE 0.14 10/3/uL (0.0-0.53); IMMATURE GRANULOCYTES 0.6 %; IMMATURE GRANULOCYTES ABSOLUTE 0.02 10/3/uL (0.0-0.11); LYMPHOCYTES 27.9 %; LYMPHOCYTES ABSOLUTE 0.97 10/3/uL (0.67-4.30); MEAN CORPUS HGB CONC 33.2 g/dL (32.0-36.0); MEAN CORPUSCULAR HEMOGLOB 31.2 pg (26.0-34.0); MEAN PLATELET VOLUME 9.4 fL (9.2-13.0); MONOCYTES 11.5 %; NEUTROPHILS 55.7 %; NEUTROPHILS ABSOLUTE 1.94 10/3/uL (2.02-8.40); RBC DISTRIBUTION WIDTH 14.3 % (12.0-16.0)
[2016-12-04 06:35] LABS: HEMATOCRIT 23.2 % (36.0-48.0); HEMOGLOBIN 7.7 g/dL (12.0-16.0); MANUAL DIFF NO %; MEAN CORPUSCULAR VOLUME 93.9 fL (80-100); PLATELET COUNT 232 10/3/uL (150-400); RED CELL COUNT 2.47 10/6/uL (4.0-5.6); WHITE BLOOD CELLS 3.5 10/3/uL (4.5-10.5)
[2016-12-04 08:33] LABS: BASOPHILS 0.2 %; BASOPHILS ABSOLUTE 0.01 10/3/uL (0.0-0.16); EOSINOPHILS 4.6 %; EOSINOPHILS ABSOLUTE 0.27 10/3/uL (0.0-0.53); IMMATURE GRANULOCYTES 0.3 %; IMMATURE GRANULOCYTES ABSOLUTE 0.02 10/3/uL (0.0-0.11); LYMPHOCYTES 30.4 %; LYMPHOCYTES ABSOLUTE 1.78 10/3/uL (0.67-4.30); MEAN CORPUS HGB CONC 33.3 g/dL (32.0-36.0); MEAN CORPUSCULAR HEMOGLOB 30.9 pg (26.0-34.0); MEAN CORPUSCULAR VOLUME 92.8 fL (80-100); MEAN PLATELET VOLUME 9.5 fL (9.2-13.0); MONOCYTES 7.7 %; MONOCYTES ABSOLUTE 0.45 10/3/uL (0.21-1.20); NEUTROPHILS 56.8 %; NEUTROPHILS ABSOLUTE 3.32 10/3/uL (2.02-8.40); RBC DISTRIBUTION WIDTH 14.2 % (12.0-16.0)
[2016-12-04 08:37] LABS: HEMATOCRIT 37.5 % (36.0-48.0); HEMOGLOBIN 12.5 g/dL (12.0-16.0); MANUAL DIFF NO %; PLATELET COUNT 397 10/3/uL (150-400); RED CELL COUNT 4.04 10/6/uL (4.0-5.6); WHITE BLOOD CELLS 5.9 10/3/uL (4.5-10.5)
[2016-12-04 08:53] LABS: A/G RATIO 0.8 (0.7-1.9); ALBUMIN 2.9 G/DL (3.5-5.0); BUN (BLOOD UREA NITROGEN) 13 MG/DL (6-23); CHLORIDE, SERUM 112 MMOL/L (96-112); CO2 (CARBON DIOXIDE) 23 MMOL/L (24-34); CREATININE 1.15 MG/DL (0.55-1.02); GFR AFRICAN AMERICAN 53 ML/MIN (>=60); GFR NON AFRICAN AMERICAN 46 ML/MIN (>=60); GLOBULIN 3.6 G/DL (2.5-4.1); GLUCOSE, SERUM 102 MG/DL (60-99); POTASSIUM, SERUM 3.9 MMOL/L (3.5-5.3); SODIUM, SERUM 145 MMOL/L (135-148); TOTAL PROTEIN 6.5 G/DL (6.0-8.5)
[2016-12-04 09:43] LABS: FREE T4 1.26 NG/DL (0.76-1.46); PHOSPHORUS, SERUM 3.1 MG/DL (2.5-4.5); SGPT(ALT) 14 U/L (5-65)
[2016-12-04 10:13] LABS: ALKALINE PHOSPHATASE 68 U/L (45-117); SGOT(AST) 22 U/L (5-40)
[2016-12-05 05:58] LABS: BASOPHILS 0.2 %; BASOPHILS ABSOLUTE 0.01 10/3/uL (0.0-0.16); EOSINOPHILS 4.1 %; EOSINOPHILS ABSOLUTE 0.24 10/3/uL (0.0-0.53); HEMATOCRIT 33.1 % (36.0-48.0); HEMOGLOBIN 11.3 g/dL (12.0-16.0); IMMATURE GRANULOCYTES 0.3 %; IMMATURE GRANULOCYTES ABSOLUTE 0.02 10/3/uL (0.0-0.11); LYMPHOCYTES 25.9 %; MANUAL DIFF NO %; MEAN CORPUS HGB CONC 34.1 g/dL (32.0-36.0); MEAN CORPUSCULAR HEMOGLOB 31.6 pg (26.0-34.0); MEAN CORPUSCULAR VOLUME 92.5 fL (80-100); MEAN PLATELET VOLUME 9.8 fL (9.2-13.0); MONOCYTES 8.8 %; MONOCYTES ABSOLUTE 0.51 10/3/uL (0.21-1.20); NEUTROPHILS 60.7 %; NEUTROPHILS ABSOLUTE 3.52 10/3/uL (2.02-8.40); PLATELET COUNT 338 10/3/uL (150-400); RBC DISTRIBUTION WIDTH 14.2 % (12.0-16.0); RED CELL COUNT 3.58 10/6/uL (4.0-5.6); WHITE BLOOD CELLS 5.8 10/3/uL (4.5-10.5)
[2016-12-05 06:12] LABS: BUN (BLOOD UREA NITROGEN) 7 MG/DL (6-23); CALCIUM, SERUM 8.1 MG/DL (8.5-10.4); CHLORIDE, SERUM 112 MMOL/L (96-112); CO2 (CARBON DIOXIDE) 25 MMOL/L (24-34); CREATININE 1.04 MG/DL (0.55-1.02); GFR AFRICAN AMERICAN 60 ML/MIN (>=60); GFR NON AFRICAN AMERICAN 52 ML/MIN (>=60); GLUCOSE, SERUM 92 MG/DL (60-99); PHOSPHORUS, SERUM 2.7 MG/DL (2.5-4.5); POTASSIUM, SERUM 3.5 MMOL/L (3.5-5.3); SODIUM, SERUM 147 MMOL/L (135-148)
[2016-12-06 06:14] LABS: BASOPHILS 0.1 %; BASOPHILS ABSOLUTE 0.01 10/3/uL (0.0-0.16); EOSINOPHILS 4.1 %; HEMATOCRIT 35.6 % (36.0-48.0); IMMATURE GRANULOCYTES 0.3 %; IMMATURE GRANULOCYTES ABSOLUTE 0.02 10/3/uL (0.0-0.11); LYMPHOCYTES 18.1 %; LYMPHOCYTES ABSOLUTE 1.32 10/3/uL (0.67-4.30); MEAN CORPUS HGB CONC 33.7 g/dL (32.0-36.0); MEAN CORPUSCULAR HEMOGLOB 31.2 pg (26.0-34.0); MEAN CORPUSCULAR VOLUME 92.5 fL (80-100); MEAN PLATELET VOLUME 9.8 fL (9.2-13.0); MONOCYTES 9.8 %; MONOCYTES ABSOLUTE 0.71 10/3/uL (0.21-1.20); NEUTROPHILS 67.6 %; NEUTROPHILS ABSOLUTE 4.92 10/3/uL (2.02-8.40); PLATELET COUNT 344 10/3/uL (150-400); RBC DISTRIBUTION WIDTH 14.1 % (12.0-16.0); RED CELL COUNT 3.85 10/6/uL (4.0-5.6); WHITE BLOOD CELLS 7.3 10/3/uL (4.5-10.5)
[2016-12-06 06:16] LABS: MANUAL DIFF NO %
[2016-12-06 06:21] LABS: ALBUMIN 2.9 G/DL (3.5-5.0); BUN (BLOOD UREA NITROGEN) 9 MG/DL (6-23); CALCIUM, SERUM 8.6 MG/DL (8.5-10.4); CHLORIDE, SERUM 111 MMOL/L (96-112); CO2 (CARBON DIOXIDE) 25 MMOL/L (24-34); CREATININE 1.06 MG/DL (0.55-1.02); GFR AFRICAN AMERICAN 59 ML/MIN (>=60); GFR NON AFRICAN AMERICAN 51 ML/MIN (>=60); PHOSPHORUS, SERUM 2.7 MG/DL (2.5-4.5); POTASSIUM, SERUM 3.5 MMOL/L (3.5-5.3); SODIUM, SERUM 145 MMOL/L (135-148)
[2016-12-06 06:22] LABS: GLUCOSE, SERUM 111 MG/DL (60-99)
[2016-12-07] MEDS ORDERED: QUESLITE PO (09:49)
[2016-12-07] MEDS ORDERED: PROTONIX PO (09:49)
[2017-02-04] MEDS ORDERED: TAZTIA X4 PO (10:42)
[2017-02-04] MEDS ORDERED: ANALGESIC TOP (10:42)
[2017-02-04] MEDS ORDERED: T PO (10:42)
[2017-02-04] MEDS ORDERED: ALTA5 PO (10:43)
[2017-02-04] MEDS ORDERED: [UNRECOGNIZED DRUG - REMARK] PO (10:43)
[2017-02-04] MEDS ORDERED: ARICEPT10 PO (10:44)
[2017-02-04] MEDS ORDERED: LEXAPRO10 PO (10:44)
[2017-02-04] MEDS ORDERED: NEUR300 PO ×2 (10:44)
[2017-02-04] MEDS ORDERED: KLOR-CON M2020 MEQ PO (10:45)
[2017-02-04] MEDS ORDERED: CAT1 PO (10:45)
[2017-02-04] MEDS ORDERED: PRAV10 PO (10:45)
[2017-02-11] MEDS ORDERED: FLORASTOR250 MG PO (10:41)
[2017-02-11] MEDS ORDERED: VANCOCIN HCL125 MG PO (10:42)
[2017-02-11] MEDS ORDERED: BANATROL PO (10:43)
[2017-02-15] MEDS ORDERED: MULTI-VIT HP PO (09:36)
[2017-02-15] MEDS ORDERED: PRAV10 PO (15:58)
[2017-02-15] MEDS ORDERED: ACIDOPHILU2 PO (16:00)
[2017-02-15] MEDS ORDERED: VANCOMYCIN LIQUID PO (16:02)
[2017-02-15] MEDS ORDERED: KDUR20 PO (16:06)
== END 2016-12-07 11:34 | disposition home or self-care (01) | DRG 392 ==
LOC: ER 16:15 → 4SO 18:01
PROVIDERS: Emergency Medicine; Internal Medicine
DX: K29.80 Duodenitis without bleeding (principal); I48.0 Paroxysmal atrial fibrillation; E11.9 Type 2 diabetes mellitus without complications; I10 Essential (primary) hypertension; F32.9 Major depressive disorder, single episode, unspecified; G31.84 Mild cognitive impairment of uncertain or unknown etiology; E78.5 Hyperlipidemia, unspecified; R19.7 Diarrhea, unspecified; K21.9 Gastro-esophageal reflux disease without esophagitis; R53.1 Weakness; Z90.5 Acquired absence of kidney; I25.10 Atherosclerotic heart disease of native coronary artery without angina pectoris; Z95.1 Presence of aortocoronary bypass graft; Z86.73 Personal history of transient ischemic attack (TIA), and cerebral infarction without residual deficits; F41.9 Anxiety disorder, unspecified; Z79.82 Long term (current) use of aspirin; Z79.891 Long term (current) use of opiate analgesic; Z88.0 Allergy status to penicillin; Z88.1 Allergy status to other antibiotic agents; Z88.3 Allergy status to other anti-infective agents; K29.70 Gastritis, unspecified, without bleeding
CPT/HCPCS: 74176; 80048; 80053; 80069; 80076; 81001; 82150; 82962; 83036; 83690; 83735; 84100; 84439; 84443; 84484; 85025; 85610; 85730; 87040; 87045; 87046; 87046-59; 87328; 87329; 87493; 87493-59; 87899; 87899-59; 89055; 93005; 96374; 96375; 97161-GP; 99285; A9270-GY; G8978-CH-GP; G8979-CH-GP; G8980-CH-GP; J0360; J1652; J2550

== ENCOUNTER 2016-12-28 14:13 | Emergency (ER) | payer MEDICARE, BC ==
[2016-12-28 12:48] LABS: BASOPHILS 0.2 %; BASOPHILS ABSOLUTE 0.01 10/3/uL (0.0-0.16); EOSINOPHILS 3.3 %; EOSINOPHILS ABSOLUTE 0.16 10/3/uL (0.0-0.53); HEMATOCRIT 36.4 % (36.0-48.0); HEMOGLOBIN 12.4 g/dL (12.0-16.0); IMMATURE GRANULOCYTES 0.2 %; IMMATURE GRANULOCYTES ABSOLUTE 0.01 10/3/uL (0.0-0.11); LYMPHOCYTES 21.8 %; LYMPHOCYTES ABSOLUTE 1.06 10/3/uL (0.67-4.30); MANUAL DIFF NO %; MEAN CORPUS HGB CONC 34.1 g/dL (32.0-36.0); MEAN CORPUSCULAR HEMOGLOB 31.2 pg (26.0-34.0); MEAN CORPUSCULAR VOLUME 91.5 fL (80-100); MEAN PLATELET VOLUME 10.2 fL (9.2-13.0); MONOCYTES 9.7 %; MONOCYTES ABSOLUTE 0.47 10/3/uL (0.21-1.20); NEUTROPHILS 64.8 %; NEUTROPHILS ABSOLUTE 3.15 10/3/uL (2.02-8.40); PLATELET COUNT 245 10/3/uL (150-400); RBC DISTRIBUTION WIDTH 14.1 % (12.0-16.0); RED CELL COUNT 3.98 10/6/uL (4.0-5.6); WHITE BLOOD CELLS 4.9 10/3/uL (4.5-10.5)
[2016-12-28 13:03] LABS: A/G RATIO 1.2 (0.7-1.9); ALKALINE PHOSPHATASE 71 U/L (45-117); BUN (BLOOD UREA NITROGEN) 10 MG/DL (6-23); CALCIUM, SERUM 9.3 MG/DL (8.5-10.4); CHLORIDE, SERUM 110 MMOL/L (96-112); CO2 (CARBON DIOXIDE) 25 MMOL/L (24-34); CREATININE 1.32 MG/DL (0.55-1.02); GFR AFRICAN AMERICAN 45 ML/MIN (>=60); GFR NON AFRICAN AMERICAN 39 ML/MIN (>=60); GLOBULIN 3.2 G/DL (2.5-4.1); GLUCOSE, SERUM 113 MG/DL (60-99); POTASSIUM, SERUM 3.6 MMOL/L (3.5-5.3); SGOT(AST) 13 U/L (5-40); SGPT(ALT) 19 U/L (5-65); SODIUM, SERUM 144 MMOL/L (135-148); TOTAL BILIRUBIN 1.1 MG/DL (0-1.2); TOTAL PROTEIN 7.1 G/DL (6.0-8.5)
[2016-12-28 13:10] LABS: ALBUMIN 3.9 G/DL (3.5-5.0)
[2016-12-28 13:15] LABS: ASCORBIC ACID (UR NOT ORDER) 40 (NEG); BILIRUBIN, URINE NEGATIVE (NEG); ER URINALYSIS TAT 0 Hrs 07 Mins; KETONE, URINE 20 MG/DL (NEG); LEUKOCYTE ESTERASE(NOT OR MOD (NEG); NITRITE (URINE) NEG (NEG); WBC (NOT ORDERED) (RFLEX) 7 (0-5)
[~2016-12-28 14:13] MED LIST changes: +KDUR20 PO; +MULTIVIT/MIN PO; +PROTONIX PO; +QUESLITE PO
[2017-02-04] MEDS ORDERED: ANALGESIC TOP (10:42)
[2017-02-04] MEDS ORDERED: T PO (10:42)
[2017-02-04] MEDS ORDERED: TAZTIA X4 PO (10:42)
[2017-02-04] MEDS ORDERED: ALTA5 PO (10:43)
[2017-02-04] MEDS ORDERED: [UNRECOGNIZED DRUG - REMARK] PO (10:43)
[2017-02-04] MEDS ORDERED: ARICEPT10 PO (10:44)
[2017-02-04] MEDS ORDERED: NEUR300 PO ×2 (10:44)
[2017-02-04] MEDS ORDERED: LEXAPRO10 PO (10:44)
[2017-02-04] MEDS ORDERED: CAT1 PO (10:45)
[2017-02-04] MEDS ORDERED: PRAV10 PO (10:45)
[2017-02-04] MEDS ORDERED: KLOR-CON M2020 MEQ PO (10:45)
[2017-02-11] MEDS ORDERED: FLORASTOR250 MG PO (10:41)
[2017-02-11] MEDS ORDERED: VANCOCIN HCL125 MG PO (10:42)
[2017-02-11] MEDS ORDERED: BANATROL PO (10:43)
[2017-02-15] MEDS ORDERED: MULTI-VIT HP PO (09:36)
[2017-02-15] MEDS ORDERED: PRAV10 PO (15:58)
[2017-02-15] MEDS ORDERED: ACIDOPHILU2 PO (16:00)
[2017-02-15] MEDS ORDERED: VANCOMYCIN LIQUID PO (16:02)
[2017-02-15] MEDS ORDERED: KDUR20 PO (16:06)
== END 2016-12-28 18:56 | disposition home or self-care (01) ==
LOC: ER 14:13
PROVIDERS: Nurse Practitioner
DX: R19.7 Diarrhea, unspecified (principal); R11.0 Nausea; R10.84 Generalized abdominal pain; N39.0 Urinary tract infection, site not specified; I10 Essential (primary) hypertension; F32.9 Major depressive disorder, single episode, unspecified; F41.9 Anxiety disorder, unspecified; E11.9 Type 2 diabetes mellitus without complications; Z95.1 Presence of aortocoronary bypass graft; Z88.0 Allergy status to penicillin; Z88.1 Allergy status to other antibiotic agents; Z88.8 Allergy status to other drugs, medicaments and biological substances; Z79.82 Long term (current) use of aspirin; Z79.899 Other long term (current) drug therapy
CPT/HCPCS: 74176; 80053; 81001; 83605; 83690; 85025; 87077; 87086; 87186; 87328; 87329; 87493; 87493-59; 89055; 96374; 99284; J2405

== ENCOUNTER 2017-01-31 20:06 | Emergency (ER) | payer MEDICARE, BC ==
[2017-01-31 22:44] LABS: BASOPHILS 0.1 %; BASOPHILS ABSOLUTE 0.01 10/3/uL (0.0-0.16); EOSINOPHILS 4.4 %; EOSINOPHILS ABSOLUTE 0.35 10/3/uL (0.0-0.53); HEMATOCRIT 38.5 % (36.0-48.0); HEMOGLOBIN 12.7 g/dL (12.0-16.0); IMMATURE GRANULOCYTES 0.3 %; IMMATURE GRANULOCYTES ABSOLUTE 0.02 10/3/uL (0.0-0.11); LYMPHOCYTES 22.5 %; LYMPHOCYTES ABSOLUTE 1.78 10/3/uL (0.67-4.30); MEAN CORPUSCULAR HEMOGLOB 31.2 pg (26.0-34.0); MEAN PLATELET VOLUME 9.8 fL (9.2-13.0); MONOCYTES 12.3 %; MONOCYTES ABSOLUTE 0.97 10/3/uL (0.21-1.20); NEUTROPHILS 60.4 %; NEUTROPHILS ABSOLUTE 4.78 10/3/uL (2.02-8.40); PLATELET COUNT 258 10/3/uL (150-400); RBC DISTRIBUTION WIDTH 13.5 % (12.0-16.0); RED CELL COUNT 4.07 10/6/uL (4.0-5.6)
[2017-01-31 22:46] LABS: ER CBC TAT 0 Hrs 10 Mins; MANUAL DIFF NO %; MEAN CORPUSCULAR VOLUME 94.6 fL (80-100); WHITE BLOOD CELLS 7.9 10/3/uL (4.5-10.5)
[2017-01-31 22:51] LABS: PARTIAL THROMBO TIME 23.9 SEC (22.5-37.2)
[2017-01-31 23:01] LABS: CALCIUM, SERUM 8.9 MG/DL (8.5-10.4); CHEST PAIN PROFILE TAT 0 Hrs 25 Mins; CHLORIDE, SERUM 105 MMOL/L (96-112); CO2 (CARBON DIOXIDE) 27 MMOL/L (24-34); CREATININE 1.43 MG/DL (0.55-1.02); GFR AFRICAN AMERICAN 41 ML/MIN (>=60); GFR NON AFRICAN AMERICAN 35 ML/MIN (>=60); GLUCOSE, SERUM 107 MG/DL (60-99); SODIUM, SERUM 139 MMOL/L (135-148); TROPONIN I <0.02 NG/ML (<0.05)
[2017-01-31 23:04] LABS: BUN (BLOOD UREA NITROGEN) 29 MG/DL (6-23); POTASSIUM, SERUM 4.5 MMOL/L (3.5-5.3)
[2017-02-04] MEDS ORDERED: T PO (10:42)
[2017-02-04] MEDS ORDERED: ANALGESIC TOP (10:42)
[2017-02-04] MEDS ORDERED: TAZTIA X4 PO (10:42)
[2017-02-04] MEDS ORDERED: [UNRECOGNIZED DRUG - REMARK] PO (10:43)
[2017-02-04] MEDS ORDERED: ALTA5 PO (10:43)
[2017-02-04] MEDS ORDERED: NEUR300 PO ×2 (10:44)
[2017-02-04] MEDS ORDERED: LEXAPRO10 PO (10:44)
[2017-02-04] MEDS ORDERED: ARICEPT10 PO (10:44)
[2017-02-04] MEDS ORDERED: KLOR-CON M2020 MEQ PO (10:45)
[2017-02-04] MEDS ORDERED: CAT1 PO (10:45)
[2017-02-04] MEDS ORDERED: PRAV10 PO (10:45)
[2017-02-11] MEDS ORDERED: FLORASTOR250 MG PO (10:41)
[2017-02-11] MEDS ORDERED: VANCOCIN HCL125 MG PO (10:42)
[2017-02-11] MEDS ORDERED: BANATROL PO (10:43)
[2017-02-15] MEDS ORDERED: MULTI-VIT HP PO (09:36)
[2017-02-15] MEDS ORDERED: PRAV10 PO (15:58)
[2017-02-15] MEDS ORDERED: ACIDOPHILU2 PO (16:00)
[2017-02-15] MEDS ORDERED: VANCOMYCIN LIQUID PO (16:02)
[2017-02-15] MEDS ORDERED: KDUR20 PO (16:06)
== END 2017-02-01 01:25 | disposition home or self-care (01) ==
LOC: ER 20:06
PROVIDERS: Emergency Medicine
DX: S61.411A Laceration without foreign body of right hand, initial encounter (principal); S60.221A Contusion of right hand, initial encounter; S20.211A Contusion of right front wall of thorax, initial encounter; I12.9 Hypertensive chronic kidney disease with stage 1 through stage 4 chronic kidney disease, or unspecified chronic kidney disease; N18.9 Chronic kidney disease, unspecified; Z95.1 Presence of aortocoronary bypass graft; Z88.0 Allergy status to penicillin; Z88.1 Allergy status to other antibiotic agents; Z88.8 Allergy status to other drugs, medicaments and biological substances; Z79.82 Long term (current) use of aspirin; Z79.899 Other long term (current) drug therapy; Z79.2 Long term (current) use of antibiotics; W19.XXXA Unspecified fall, initial encounter
CPT/HCPCS: 71020; 73120; 80048; 83735; 84484; 85025; 85610; 85730; 99285